=== PATIENT | female | born 1985 | race African-American/Black ===

== ENCOUNTER 2016-07-03 16:31 | Emergency (ER) | payer OTHER ==
[~2016-07-03] VITALS: Ht 172.7 cm; Wt 81.8 kg
[~2016-07-03 16:31] MED LIST: AMOXICILLIN 50500 MG; ANUSOL-HC SUPPO25 MG RC; BACTRIM DS 8001 TAB PO; CEPHALEXIN250 M1 PO; COLACE 100100 MG/CAP PO; FLINTSTONE VITAMIN; IBU800 M1 PO; MVI; NO HOME MEDICATIONS; NORCO 325 MG-51 TAB PO; PEPCID 20MG TAB20 MG PO; PHENERGAN W/CO120 ML PO; PRENATAL VITAMI1 TA5 PO; REGLAN 10MG10 MG/TAB PO; ZITHROMAX TRI-500 MG PO
[2016-07-03 16:33] VITALS: TEMP 98.8
[2016-07-03 17:39] VITALS: BP 122/84; PULSE 79
[2016-09-26] MEDS ORDERED: PREDNISONE20 MG PO (12:47)
[2016-09-26] MEDS ORDERED: SINGULAIR 110 MG/TAB PO (12:48)
== END 2016-07-03 17:38 | disposition home or self-care (01) ==
LOC: COL.ER 16:31
DX: G43.909 Migraine, unspecified, not intractable, without status migrainosus (principal); R60.0 Localized edema; G89.29 Other chronic pain; M79.662 Pain in left lower leg; M79.661 Pain in right lower leg; F17.210 Nicotine dependence, cigarettes, uncomplicated
CPT/HCPCS: J1885; J2550

== ENCOUNTER → 2016-07-21 | Outpatient (CLI) | payer OTHER ==
[~2016-07-21] MED LIST changes: +AMOXICILLIN 8751 TAB PO; +ASPIRIN E.C. 8181 MG PO; +AUGMENTIN 250 M1 TAB PO; +CLARITIN 1010 MG/TAB PO; +DRISDOL50000 IU PO; +K-DUR 10 MEQ T10 MEQ PO; +LASIX 40MG TABL40 MG PO; +LEVAQUIN 5500 MG/TA1 PO; +PERCOCET 325 MG1 TA2 PO; +PHENERGAN 25 TA25 MG; +PRAVACHOL 40MG40 MG PO; +PREDNISONE1 MG PO; +PREDNISONE20 MG PO; +SINGULAIR 110 MG/TAB PO; +VITAMIN D1000 IU PO; +ZESTRIL 5MG5 MG PO; +ZOFRAN 4MG T4 MG/TAB PO
[2016-07-21 09:58] LABS: BASO # 0.1 (0.0-0.2); BASO % 0.6 % (0.0-2.0); EOS # 1.3 (0.0-0.7); GRAN # 3.2 (1.4-6.5); GRAN % 38.7 % (42.2-75.2); HEMATOCRIT 39.5 % (37.0-47.0); HEMOGLOBIN 13.3 g/dl (12.5-16.0); LYMPH % 37.1 % (20.0-51.0); MEAN CELL VOLUME 93 fl (80.0-100.0); MEAN CORPUSCULAR HEMOGLOBIN 31 pg (27.0-31.0); MEAN CORPUSCULAR HGB CONC 34 g/dl (33.0-37.0); MONO # 0.6 (0.1-0.6); MONO % 7.5 % (1.7-9.3); PLATELET COUNT 302 K/mm3 (130-400); RED BLOOD COUNT 4.24 M/mm3 (4.10-5.30); REDCELL DISTRIBUTION WIDTH-CV 12.5 % (11.5-14.5); WHITE BLOOD COUNT 8.2 K/mm3 (4.8-10.8)
[2016-07-21 10:05] LABS: ADJUSTED CALCIUM 10.1 mg/dL (8.4-10.2); ALBUMIN 2.3 gm/dL (3.5-5.0); BILIRUBIN,TOTAL 0.5 mg/dL (0.0-1.0); CALCIUM 8.7 mg/dL (8.4-10.2); CREATININE, serum 0.77 mg/dL (0.52-1.25); POTASSIUM 3.6 mmol/L (3.4-5.0); TOTAL PROTEIN 6.2 gm/dL (6.4-8.2)
[2016-07-21 11:03] LABS: PH 5 (5-8); SQUAMOUS EPITHELIAL 0-2 /hpf; URINE APPEARANCE Hazy; URINE BACTERIA None Seen /hpf; URINE BILIRUBIN Negative (NEGATIVE); URINE BLOOD 1+ (NEGATIVE); URINE GLUCOSE Negative (NEGATIVE); URINE KETONE Trace (NEGATIVE); URINE UROBILINOGEN Negative (NEGATIVE)
[2016-07-21 11:05] LABS: URINE COLOR Yellow
== END ==
LOC: COL.LAB 09:08
PROVIDERS: Registered Nurse
DX: R60.1 Generalized edema (principal); M25.50 Pain in unspecified joint; G89.29 Other chronic pain

== ENCOUNTER 2016-08-07 16:48 | Emergency (ER) | payer MEDICAID ==
[~2016-08-07] VITALS: Ht 170.2 cm; Wt 95.5 kg
[~2016-08-07 16:48] MED LIST changes: -AMOXICILLIN 8751 TAB PO; -ASPIRIN E.C. 8181 MG PO; -AUGMENTIN 250 M1 TAB PO; -CLARITIN 1010 MG/TAB PO; -DRISDOL50000 IU PO; -K-DUR 10 MEQ T10 MEQ PO; -LASIX 40MG TABL40 MG PO; -LEVAQUIN 5500 MG/TA1 PO; -PERCOCET 325 MG1 TA2 PO; -PHENERGAN 25 TA25 MG; -PRAVACHOL 40MG40 MG PO; -PREDNISONE1 MG PO; -PREDNISONE20 MG PO; -SINGULAIR 110 MG/TAB PO; -VITAMIN D1000 IU PO; -ZESTRIL 5MG5 MG PO; -ZOFRAN 4MG T4 MG/TAB PO
[2016-08-07 16:54] VITALS: TEMP 100.4
[2016-08-07] MEDS ORDERED: VITAMIN D1000 IU PO (17:05)
[2016-08-07 18:33] LABS: MEAN CELL VOLUME 92 fl (80.0-100.0); MEAN CORPUSCULAR HGB CONC 34 g/dl (33.0-37.0); MEAN PLATELET VOLUME 10.8 fl (7.4-10.4); PLATELET COUNT 337 K/mm3 (130-400); RED BLOOD COUNT 3.71 M/mm3 (4.10-5.30); REDCELL DISTRIBUTION WIDTH-CV 12.5 % (11.5-14.5)
[2016-08-07 18:34] LABS: ADJUSTED CALCIUM 10.4 mg/dL (8.4-10.2); ALBUMIN 2.3 gm/dL (3.5-5.0); BILIRUBIN,TOTAL 0.5 mg/dL (0.0-1.0); C-REACTIVE PROTEIN 0.9 mg/dL (0.0-0.9); CREATININE, serum 1.39 mg/dL (0.52-1.25); POTASSIUM 4.4 mmol/L (3.4-5.0); TOTAL PROTEIN 6.3 gm/dL (6.4-8.2)
[2016-08-07 18:35] LABS: HYALINE CAST >12 /lpf; PH 5 (5-8); SQUAMOUS EPITHELIAL 0-2 /hpf; URINE APPEARANCE Hazy; URINE BACTERIA Rare /hpf; URINE BILIRUBIN Negative (NEGATIVE); URINE BLOOD 1+ (NEGATIVE); URINE COLOR Yellow; URINE GLUCOSE Negative (NEGATIVE); URINE KETONE Negative (NEGATIVE); URINE UROBILINOGEN Negative (NEGATIVE)
[2016-08-07 18:38] LABS: HEMATOCRIT 34.1 % (37.0-47.0); HEMOGLOBIN 11.5 g/dl (12.5-16.0); MEAN CORPUSCULAR HEMOGLOBIN 31 pg (27.0-31.0)
[2016-08-07 18:39] LABS: ADD PATHOLOGY DIFF REVIEW NO
[2016-08-07 19:12] LABS: BAND 7 % (0-10); EOSINOPHIL 22 % (0-4); NEUTROPHILS 45 % (42.0-75.2); PLATELET ESTIMATE NORMAL (NORMAL); TOTAL CELLS COUNTED 100
[2016-08-07] MEDS ORDERED: PERCOCET 325 MG1 TA2 PO (21:23)
[2016-08-07] MEDS ORDERED: AMOXICILLIN 8751 TAB PO (21:23)
[2016-08-07 21:40] VITALS: BP 129/72; PULSE 71
[2016-09-26] MEDS ORDERED: PREDNISONE20 MG PO (12:47)
[2016-09-26] MEDS ORDERED: SINGULAIR 110 MG/TAB PO (12:48)
== END 2016-08-07 21:53 | disposition home or self-care (01) ==
LOC: COL.ER 16:48
PROVIDERS: Emergency Medicine; Nurse Practitioner
DX: N04.9 Nephrotic syndrome with unspecified morphologic changes (principal); J32.9 Chronic sinusitis, unspecified; R51 Headache; F17.210 Nicotine dependence, cigarettes, uncomplicated
CPT/HCPCS: J1200; J1885; J2765; J7030

== ENCOUNTER 2016-08-09 09:10 | Emergency (ER) | payer OTHER, MEDICAID ==
[~2016-08-09] VITALS: Ht 170.2 cm; Wt 90.9 kg
[~2016-08-09 09:10] MED LIST changes: +AMOXICILLIN 8751 TAB PO; +PERCOCET 325 MG1 TA2 PO; +VITAMIN D1000 IU PO
[2016-08-09 09:14] VITALS: BP 135/86; TEMP 97.6
[2016-08-09] MEDS ORDERED: CLARITIN 1010 MG/TAB PO (09:45)
[2016-08-09 09:58] VITALS: PULSE 65
[2016-08-09] MEDS ORDERED: ZOFRAN 4MG T4 MG/TAB PO (10:30)
[2016-08-09 11:34] LABS: GRANULAR CAST >12 /lpf; HYALINE CAST >12 /lpf; PH 5 (5-8); URINE APPEARANCE Cloudy; URINE BACTERIA Occasional /hpf; URINE BILIRUBIN Negative (NEGATIVE); URINE BLOOD 2+ (NEGATIVE); URINE COLOR Amber; URINE GLUCOSE Negative (NEGATIVE); URINE KETONE Trace (NEGATIVE); URINE RBC 20-50 /hpf; URINE UROBILINOGEN Negative (NEGATIVE)
[2016-09-26] MEDS ORDERED: PREDNISONE20 MG PO (12:47)
[2016-09-26] MEDS ORDERED: SINGULAIR 110 MG/TAB PO (12:48)
== END 2016-08-09 11:26 | disposition home or self-care (01) ==
LOC: COL.ER 09:10
PROVIDERS: Nurse Practitioner
DX: H65.191 Other acute nonsuppurative otitis media, right ear (principal); H66.92 Otitis media, unspecified, left ear; F17.210 Nicotine dependence, cigarettes, uncomplicated; R11.10 Vomiting, unspecified
CPT/HCPCS: J1885

== ENCOUNTER 2016-08-11 14:18 | Inpatient (IN) | payer MEDICAID ==
[~2016-08-11] VITALS: Ht 170.2 cm; Wt 95.4 kg
[~2016-08-11 14:18] MED LIST changes: +CLARITIN 1010 MG/TAB PO; +ZOFRAN 4MG T4 MG/TAB PO
[2016-08-11 16:13] VITALS: BP 143/83; PULSE 71; TEMP 998.6
[2016-08-11] MEDS ORDERED: LASIX 40MG TABL40 MG PO (16:18)
[2016-08-11 17:02] LABS: ALBUMIN 2.2 gm/dL (3.5-5.0); CALCIUM 9.3 mg/dL (8.4-10.2); CREATININE, serum 1.15 mg/dL (0.52-1.25); POTASSIUM 4.5 mmol/L (3.4-5.0)
[2016-08-11 17:19] LABS: HIV 1/2 Antibodies Non-Reactive; HIV-1p24 Antigen Non-Reactive; PHOSPHOROUS 7.5 mg/dL (2.5-4.5)
[2016-08-11 20:03] VITALS: BP 118/65; PULSE 71; TEMP 99.2
[2016-08-12] VITALS (7 sets, daily range): BP systolic 113–145; BP diastolic 57–85; PULSE 68–83; TEMP 98.1–99.4
[2016-08-12 07:39] LABS: BASO # 0.1 (0.0-0.2); BASO % 0.8 % (0.0-2.0); EOS # 2.3 (0.0-0.7); EOS % 24.9 % (0-4.0); GRAN # 3.3 (1.4-6.5); GRAN % 36.7 % (42.2-75.2); LYMPH # 2.5 (1.2-3.4); LYMPH % 27.5 % (20.0-51.0); MEAN CELL VOLUME 92 fl (80.0-100.0); MEAN CORPUSCULAR HGB CONC 33 g/dl (33.0-37.0); MEAN PLATELET VOLUME 10.9 fl (7.4-10.4); MONO # 0.9 (0.1-0.6); MONO % 9.9 % (1.7-9.3); PLATELET COUNT 283 K/mm3 (130-400); RED BLOOD COUNT 3.03 M/mm3 (4.10-5.30); REDCELL DISTRIBUTION WIDTH-CV 12.7 % (11.5-14.5)
[2016-08-12 07:46] LABS: HEMATOCRIT 27.9 % (37.0-47.0); HEMOGLOBIN 9.3 g/dl (12.5-16.0); MEAN CORPUSCULAR HEMOGLOBIN 31 pg (27.0-31.0)
[2016-08-12 07:49] LABS: CALCIUM 8.7 mg/dL (8.4-10.2); CREATININE, serum 1.26 mg/dL (0.52-1.25); POTASSIUM 4.4 mmol/L (3.4-5.0)
[2016-08-12 18:15] LABS: URINE 24 HOUR CREATININE 1.3 gm/24 hr (0.8-1.8)
[2016-08-12 20:04] LABS: CREATININE URINE <5 mg/dL (())
[2016-08-12 20:35] LABS: HYALINE CAST >12 /lpf; PH 5 (5-8); URINE APPEARANCE Cloudy; URINE BACTERIA Rare /hpf; URINE BILIRUBIN Negative (NEGATIVE); URINE BLOOD 2+ (NEGATIVE); URINE COLOR Yellow; URINE GLUCOSE Negative (NEGATIVE); URINE KETONE Trace (NEGATIVE); URINE RBC 20-50 /hpf; URINE UROBILINOGEN Negative (NEGATIVE)
[2016-08-12 20:43] LABS: URINE WBC 0-2 /hpf
[2016-08-13 04:29] VITALS: BP 105/55; PULSE 81; TEMP 97.7
[2016-08-13 07:11] LABS: MEAN CELL VOLUME 91 fl (80.0-100.0); MEAN CORPUSCULAR HGB CONC 34 g/dl (33.0-37.0); PLATELET COUNT 246 K/mm3 (130-400); RED BLOOD COUNT 2.89 M/mm3 (4.10-5.30); REDCELL DISTRIBUTION WIDTH-CV 12.5 % (11.5-14.5); WHITE BLOOD COUNT 9.7 K/mm3 (4.8-10.8)
[2016-08-13 07:17] LABS: HEMATOCRIT 26.3 % (37.0-47.0); HEMOGLOBIN 8.9 g/dl (12.5-16.0); MEAN CORPUSCULAR HEMOGLOBIN 31 pg (27.0-31.0)
[2016-08-13 07:18] LABS: ADD PATHOLOGY DIFF REVIEW NO
[2016-08-13 07:26] LABS: ALBUMIN 1.9 gm/dL (3.5-5.0); CALCIUM 8.9 mg/dL (8.4-10.2); CREATININE, serum 1.68 mg/dL (0.52-1.25); PHOSPHOROUS 7.1 mg/dL (2.5-4.5); POTASSIUM 4.2 mmol/L (3.4-5.0)
[2016-08-13 07:37] VITALS: BP 101/64; PULSE 74; TEMP 98.4
[2016-08-13 07:37] LABS: BAND 1 % (0-10); EOSINOPHIL 19 % (0-4); NEUTROPHILS 43 % (42.0-75.2); TOTAL CELLS COUNTED 100
[2016-08-13 11:39] VITALS: BP 131/83; PULSE 69; TEMP 97.9
[2016-08-13 15:26] VITALS: BP 126/82; PULSE 66; TEMP 98.9
[2016-08-13 20:31] VITALS: BP 124/75; PULSE 80; TEMP 98.7
[2016-08-14] VITALS (13 sets, daily range): BP systolic 113–149; BP diastolic 66–101; PULSE 9–78; TEMP 97.7–99.3
[2016-08-14 07:07] LABS: MEAN CELL VOLUME 91 fl (80.0-100.0); MEAN CORPUSCULAR HGB CONC 34 g/dl (33.0-37.0); MEAN PLATELET VOLUME 11.2 fl (7.4-10.4); PLATELET COUNT 249 K/mm3 (130-400); RED BLOOD COUNT 3.03 M/mm3 (4.10-5.30); REDCELL DISTRIBUTION WIDTH-CV 12.5 % (11.5-14.5); WHITE BLOOD COUNT 9.6 K/mm3 (4.8-10.8)
[2016-08-14 07:12] LABS: INR 1.3 (0.8-3.0)
[2016-08-14 07:15] LABS: PARTIAL THROMBOPLASTIN TIME 43.1 SECONDS (26.0-37.0)
[2016-08-14 07:23] LABS: HEMATOCRIT 27.5 % (37.0-47.0); HEMOGLOBIN 9.3 g/dl (12.5-16.0); MEAN CORPUSCULAR HEMOGLOBIN 31 pg (27.0-31.0)
[2016-08-14 07:24] LABS: ADD PATHOLOGY DIFF REVIEW NO
[2016-08-14 07:25] LABS: ALBUMIN 1.9 gm/dL (3.5-5.0); CALCIUM 9.2 mg/dL (8.4-10.2); CREATININE, serum 1.59 mg/dL (0.52-1.25); PHOSPHOROUS 7.7 mg/dL (2.5-4.5); POTASSIUM 4.1 mmol/L (3.4-5.0)
[2016-08-14 08:37] LABS: BAND 1 % (0-10); BASOPHIL 1 % (0-2); EOSINOPHIL 29 % (0-4); NEUTROPHILS 36 % (42.0-75.2); PLATELET ESTIMATE NORMAL (NORMAL); TOTAL CELLS COUNTED 100
[2016-08-15 00:48] LABS: PROTEIN TIMED URINE 3944.9 mg/24hrs (0.0-299.0)
[2016-08-15 03:41] VITALS: BP 117/63; PULSE 63; TEMP 98.9
[2016-08-15 03:43] LABS: ANA SCREEN with REFLEX Negative (Negative)
[2016-08-15 07:34] LABS: MEAN CELL VOLUME 91 fl (80.0-100.0); MEAN CORPUSCULAR HGB CONC 34 g/dl (33.0-37.0); MEAN PLATELET VOLUME 11.6 fl (7.4-10.4); PLATELET COUNT 252 K/mm3 (130-400); RED BLOOD COUNT 2.95 M/mm3 (4.10-5.30); REDCELL DISTRIBUTION WIDTH-CV 12.4 % (11.5-14.5); WHITE BLOOD COUNT 10.5 K/mm3 (4.8-10.8)
[2016-08-15 07:38] LABS: ADD PATHOLOGY DIFF REVIEW NO; HEMATOCRIT 26.8 % (37.0-47.0); HEMOGLOBIN 9.1 g/dl (12.5-16.0); MEAN CORPUSCULAR HEMOGLOBIN 31 pg (27.0-31.0)
[2016-08-15 07:45] LABS: CALCIUM 9.4 mg/dL (8.4-10.2); CREATININE, serum 1.77 mg/dL (0.52-1.25); POTASSIUM 4.2 mmol/L (3.4-5.0)
[2016-08-15 08:15] VITALS: BP 134/82; PULSE 70; TEMP 98.9
[2016-08-15 09:52] LABS: BASOPHIL 1 % (0-2); EOSINOPHIL 23 % (0-4); NEUTROPHILS 42 % (42.0-75.2); PLATELET ESTIMATE NORMAL (NORMAL); TOTAL CELLS COUNTED 100
[2016-08-15] MEDS ORDERED: LEVAQUIN 5500 MG/TA1 PO (10:12)
[2016-08-25 19:58] LABS: PROT-CREAT RATIO, URINE 0.9 (())
[2016-09-26] MEDS ORDERED: PREDNISONE20 MG PO (12:47)
[2016-09-26] MEDS ORDERED: SINGULAIR 110 MG/TAB PO (12:48)
== END 2016-08-15 11:04 | disposition home or self-care (01) | DRG 700 ==
LOC: COL.RAD 14:18 → MEDICAL 15:45
PROVIDERS: Internal Medicine; Internal Medicine Nephrology
PROC: 0TB13ZX Excision of Left Kidney, Percutaneous Approach, Diagnostic (ICD-10-PCS; principal; 2016-08-14)
DX: N04.9 Nephrotic syndrome with unspecified morphologic changes (principal); J01.90 Acute sinusitis, unspecified; I10 Essential (primary) hypertension; E87.70 Fluid overload, unspecified; F17.210 Nicotine dependence, cigarettes, uncomplicated
CPT/HCPCS: J1650; J1956; J2250; J2405; J3010

== ENCOUNTER 2016-08-18 07:58 | Emergency (ER) | payer MEDICAID ==
[~2016-08-18] VITALS: Ht 172.7 cm; Wt 86.4 kg
[~2016-08-18 07:58] MED LIST changes: +LASIX 40MG TABL40 MG PO; +LEVAQUIN 5500 MG/TA1 PO
[2016-08-18 08:00] VITALS: TEMP 98.5
[2016-08-18] MEDS ORDERED: PREDNISONE1 MG PO (08:18)
[2016-08-18] MEDS ORDERED: AUGMENTIN 250 M1 TAB PO (08:19)
[2016-08-18] MEDS ORDERED: PREDNISONE20 MG PO (08:19)
[2016-08-18 09:04] LABS: BASO % 0.2 % (0.0-2.0); EOS % 0.1 % (0-4.0); GRAN # 10.7 (1.4-6.5); GRAN % 81.7 % (42.2-75.2); LYMPH # 1.8 (1.2-3.4); LYMPH % 13.7 % (20.0-51.0); MEAN CELL VOLUME 89 fl (80.0-100.0); MEAN CORPUSCULAR HGB CONC 34 g/dl (33.0-37.0); MEAN PLATELET VOLUME 11.1 fl (7.4-10.4); MONO # 0.5 (0.1-0.6); MONO % 3.8 % (1.7-9.3); PLATELET COUNT 242 K/mm3 (130-400); RED BLOOD COUNT 3.27 M/mm3 (4.10-5.30); REDCELL DISTRIBUTION WIDTH-CV 12.3 % (11.5-14.5)
[2016-08-18 09:13] LABS: HEMATOCRIT 29.1 % (37.0-47.0); HEMOGLOBIN 9.9 g/dl (12.5-16.0); MEAN CORPUSCULAR HEMOGLOBIN 30 pg (27.0-31.0)
[2016-08-18 09:21] LABS: ADJUSTED CALCIUM 10.9 mg/dL (8.4-10.2); ALBUMIN 2.3 gm/dL (3.5-5.0); BILIRUBIN,TOTAL 0.4 mg/dL (0.0-1.0); CALCIUM 9.5 mg/dL (8.4-10.2); CREATININE, serum 3.17 mg/dL (0.52-1.25); POTASSIUM 4.4 mmol/L (3.4-5.0); TOTAL PROTEIN 6.2 gm/dL (6.4-8.2)
[2016-08-18 10:15] VITALS: BP 124/91; PULSE 85
[2016-09-26] MEDS ORDERED: PREDNISONE20 MG PO (12:47)
[2016-09-26] MEDS ORDERED: SINGULAIR 110 MG/TAB PO (12:48)
== END 2016-08-18 10:11 | disposition home or self-care (01) ==
LOC: COL.ER 07:58
PROVIDERS: Nurse Practitioner
DX: N04.9 Nephrotic syndrome with unspecified morphologic changes (principal); F17.210 Nicotine dependence, cigarettes, uncomplicated

== ENCOUNTER → 2016-08-21 | Outpatient (CLI) | payer OTHER ==
[~2016-08-21] MED LIST changes: +ASPIRIN E.C. 8181 MG PO; +AUGMENTIN 250 M1 TAB PO; +DRISDOL50000 IU PO; +K-DUR 10 MEQ T10 MEQ PO; +LASIX 20MG TABL20 MG PO; +PHENERGAN 25 TA25 MG; +PRAVACHOL 40MG40 MG PO; +PREDNISONE1 MG PO; +PREDNISONE20 MG PO; +SINGULAIR 110 MG/TAB PO; +ZESTRIL 5MG5 MG PO
[2016-08-21 14:58] LABS: CALCIUM 7.3 mg/dL (8.4-10.2); CREATININE, serum 2.09 mg/dL (0.52-1.25); POTASSIUM 3.5 mmol/L (3.4-5.0)
== END ==
LOC: COL.LAB 14:13
PROVIDERS: Internal Medicine
DX: N04.8 Nephrotic syndrome with other morphologic changes (principal)

== ENCOUNTER 2016-08-24 13:04 | Emergency (ER) | payer OTHER ==
[~2016-08-24] VITALS: Ht 170.2 cm; Wt 100.0 kg
[~2016-08-24 13:04] MED LIST changes: -ASPIRIN E.C. 8181 MG PO; -DRISDOL50000 IU PO; -K-DUR 10 MEQ T10 MEQ PO; -LASIX 20MG TABL20 MG PO; -PHENERGAN 25 TA25 MG; -PRAVACHOL 40MG40 MG PO; -SINGULAIR 110 MG/TAB PO; -ZESTRIL 5MG5 MG PO
[2016-08-24 13:05] VITALS: TEMP 98.3
[2016-08-24] MEDS ORDERED: DRISDOL50000 IU PO (13:19)
[2016-08-24] MEDS ORDERED: ZESTRIL 5MG5 MG PO (13:20)
[2016-08-24] MEDS ORDERED: PRAVACHOL 40MG40 MG PO (13:20)
[2016-08-24] MEDS ORDERED: K-DUR 10 MEQ T10 MEQ PO (13:21)
[2016-08-24] MEDS ORDERED: ASPIRIN E.C. 8181 MG PO (13:22)
[2016-08-24 13:54] LABS: BASO % 0.2 % (0.0-2.0); EOS # 1.6 (0.0-0.7); EOS % 8.5 % (0-4.0); GRAN # 9.3 (1.4-6.5); GRAN % 48.2 % (42.2-75.2); LYMPH # 6.7 (1.2-3.4); LYMPH % 34.4 % (20.0-51.0); MEAN CELL VOLUME 93 fl (80.0-100.0); MEAN CORPUSCULAR HGB CONC 33 g/dl (33.0-37.0); MEAN PLATELET VOLUME 10.1 fl (7.4-10.4); MONO # 1.6 (0.1-0.6); MONO % 8.2 % (1.7-9.3); PLATELET COUNT 452 K/mm3 (130-400); RED BLOOD COUNT 3.18 M/mm3 (4.10-5.30); REDCELL DISTRIBUTION WIDTH-CV 13.5 % (11.5-14.5); WHITE BLOOD COUNT 19.3 K/mm3 (4.8-10.8)
[2016-08-24 13:56] LABS: HEMATOCRIT 29.4 % (37.0-47.0); HEMOGLOBIN 9.8 g/dl (12.5-16.0); MEAN CORPUSCULAR HEMOGLOBIN 31 pg (27.0-31.0)
[2016-08-24 13:59] LABS: PH 5 (5-8); SQUAMOUS EPITHELIAL 0-2 /hpf; URINE APPEARANCE Clear; URINE BACTERIA Rare /hpf; URINE BILIRUBIN Negative (NEGATIVE); URINE BLOOD 2+ (NEGATIVE); URINE COLOR Yellow; URINE GLUCOSE Negative (NEGATIVE); URINE KETONE Negative (NEGATIVE); URINE UROBILINOGEN Negative (NEGATIVE); URINE WBC 0-2 /hpf
[2016-08-24 14:04] LABS: PROTHROMBIN TIME 10.9 SECONDS (9.7-12.8)
[2016-08-24 14:05] LABS: ADJUSTED CALCIUM 8.5 mg/dL (8.4-10.2); ALANINE AMINOTRANSFERASE 33 U/L (9-52); ALBUMIN 2.1 gm/dL (3.5-5.0); ALKALINE PHOSPHATASE 108 U/L (50-136); ANION GAP 6 mmol/L (7-16); BILIRUBIN,TOTAL 0.4 mg/dL (0.0-1.0); BLOOD UREA NITROGEN 22 mg/dL (7-17); CARBON DIOXIDE 25 mmol/L (22-30); CHLORIDE 107 mmol/L (98-107); GLUCOSE 90 mg/dL (74-106); POTASSIUM 3.1 mmol/L (3.4-5.0); SODIUM 138 mmol/L (137-145); TOTAL PROTEIN 5.7 gm/dL (6.4-8.2)
[2016-08-24 14:07] LABS: PARTIAL THROMBOPLASTIN TIME 29.7 SECONDS (26.0-37.0)
[2016-08-24 14:25] LABS: TROPONIN-I < 0.012 ng/mL (0.000-0.034)
[2016-08-24 15:45] VITALS: BP 138/94; PULSE 73
[2016-09-26] MEDS ORDERED: PREDNISONE20 MG PO (12:47)
[2016-09-26] MEDS ORDERED: SINGULAIR 110 MG/TAB PO (12:48)
== END 2016-08-24 15:48 | disposition left against medical advice (07) ==
LOC: COL.ER 13:04
PROVIDERS: Emergency Medicine
DX: I48.0 Paroxysmal atrial fibrillation (principal); Z53.21 Procedure and treatment not carried out due to patient leaving prior to being seen by health care provider; E87.6 Hypokalemia; N19 Unspecified kidney failure; I10 Essential (primary) hypertension; F17.210 Nicotine dependence, cigarettes, uncomplicated; R07.9 Chest pain, unspecified
CPT/HCPCS: J1650

== ENCOUNTER → 2016-09-04 | Outpatient (CLI) | payer MEDICAID ==
[~2016-09-04] MED LIST changes: +ASPIRIN E.C. 8181 MG PO; +DRISDOL50000 IU PO; +K-DUR 10 MEQ T10 MEQ PO; +PHENERGAN 25 TA25 MG; +PRAVACHOL 40MG40 MG PO; +SINGULAIR 110 MG/TAB PO; +ZESTRIL 5MG5 MG PO
[2016-09-04 12:13] LABS: BASO % 0.1 % (0.0-2.0); GRAN # 12.3 (1.4-6.5); GRAN % 79.1 % (42.2-75.2); HEMATOCRIT 38.1 % (37.0-47.0); HEMOGLOBIN 12.5 g/dl (12.5-16.0); LYMPH # 2.5 (1.2-3.4); LYMPH % 16.2 % (20.0-51.0); MEAN CELL VOLUME 98 fl (80.0-100.0); MEAN CORPUSCULAR HEMOGLOBIN 32 pg (27.0-31.0); MEAN CORPUSCULAR HGB CONC 33 g/dl (33.0-37.0); MEAN PLATELET VOLUME 10.5 fl (7.4-10.4); MONO # 0.6 (0.1-0.6); PLATELET COUNT 406 K/mm3 (130-400); REDCELL DISTRIBUTION WIDTH-CV 19.7 % (11.5-14.5); WHITE BLOOD COUNT 15.5 K/mm3 (4.8-10.8)
[2016-09-04 12:21] LABS: CALCIUM 8.9 mg/dL (8.4-10.2); PHOSPHOROUS 4.6 mg/dL (2.5-4.5); POTASSIUM 3.2 mmol/L (3.4-5.0)
[2016-09-04 22:23] LABS: CREATININE URINE 17 mg/dL (())
== END ==
LOC: COL.LAB 09:21
PROVIDERS: Internal Medicine
DX: N04.8 Nephrotic syndrome with other morphologic changes (principal)

== ENCOUNTER → 2016-09-19 | Outpatient (CLI) | payer OTHER ==
[~2016-09-19] MED LIST changes: +LASIX 20MG TABL20 MG PO
== END ==
LOC: COL.VAS 11:00
DX: E78.4 Other hyperlipidemia (principal); R00.2 Palpitations

== ENCOUNTER → 2016-09-21 | Outpatient (CLI) | payer OTHER ==
[2016-09-21 09:00] LABS: CALCIUM 9.6 mg/dL (8.4-10.2); CREATININE, serum 0.91 mg/dL (0.52-1.25); POTASSIUM 4.3 mmol/L (3.4-5.0)
[2016-09-21 09:15] LABS: PH 5 (5-8); SQUAMOUS EPITHELIAL 0-2 /hpf; URINE APPEARANCE Clear; URINE BACTERIA None Seen /hpf; URINE BILIRUBIN Negative (NEGATIVE); URINE BLOOD 2+ (NEGATIVE); URINE COLOR Yellow; URINE GLUCOSE Negative (NEGATIVE); URINE KETONE Negative (NEGATIVE); URINE UROBILINOGEN Negative (NEGATIVE); URINE WBC 0-2 /hpf
[2016-09-22 17:26] LABS: CREATININE OTHER SOURCE 73 mg/dL (())
== END ==
LOC: COL.LAB 08:20
PROVIDERS: Internal Medicine
DX: N04.8 Nephrotic syndrome with other morphologic changes (principal)

== ENCOUNTER 2016-09-29 08:24 | Outpatient (CLI) | payer MEDICAID ==
[~2016-09-29] VITALS: Ht 170.2 cm; Wt 87.8 kg
[~2016-09-29 08:24] MED LIST changes: -LASIX 20MG TABL20 MG PO; -PHENERGAN 25 TA25 MG
[2016-09-29] MEDS ORDERED: PHENERGAN 25 TA25 MG (08:48)
[2016-09-29 08:51] VITALS: BP 112/72; PULSE 75
[2016-09-29 09:35] VITALS: BP 138/60; PULSE 64
[2016-09-29 09:40] VITALS: BP 86/52; PULSE 56
[2016-09-29 09:55] VITALS: BP 96/58; PULSE 76
[2016-09-29 10:10] VITALS: BP 100/56; PULSE 57
[2016-10-02 11:14] LABS: CSF,IGG 1.5 mg/dL (<=8.1)
[2016-10-02 11:30] LABS: ALBUMIN CSF 7.1 mg/dL (<=27.0); CSF IGG/ALBUMIN 0.21 (<=0.21); CSF SYNTHESIS RATE 0.88 mg/24 h (<=12); CSF-IGG INDEX 0.68 (<=0.85); IGG/ALBUMIN SERUM 0.31 (<=0.40)
== END 2016-09-29 12:06 | disposition home or self-care (01) ==
LOC: COL.RAD 08:24
PROVIDERS: Psychiatry & Neurology Neurology
DX: H47.10 Unspecified papilledema (principal)

== ENCOUNTER → 2016-10-31 | Outpatient (CLI) | payer MEDICAID ==
[~2016-10-31] MED LIST changes: +LASIX 20MG TABL20 MG PO; +PHENERGAN 25 TA25 MG
[2016-10-31 12:16] LABS: BASO # 0.1 (0.0-0.2); BASO % 0.9 % (0.0-2.0); EOS # 0.8 (0.0-0.7); EOS % 9.4 % (0-4.0); GRAN # 2.8 (1.4-6.5); GRAN % 32.7 % (42.2-75.2); HEMATOCRIT 41.7 % (37.0-47.0); HEMOGLOBIN 14.1 g/dl (12.5-16.0); LYMPH # 4.4 (1.2-3.4); LYMPH % 51.2 % (20.0-51.0); MEAN CELL VOLUME 97 fl (80.0-100.0); MEAN CORPUSCULAR HEMOGLOBIN 33 pg (27.0-31.0); MEAN CORPUSCULAR HGB CONC 34 g/dl (33.0-37.0); MEAN PLATELET VOLUME 10.4 fl (7.4-10.4); MONO # 0.5 (0.1-0.6); MONO % 5.7 % (1.7-9.3); PLATELET COUNT 268 K/mm3 (130-400); RED BLOOD COUNT 4.29 M/mm3 (4.10-5.30); REDCELL DISTRIBUTION WIDTH-CV 13.9 % (11.5-14.5); WHITE BLOOD COUNT 8.6 K/mm3 (4.8-10.8)
[2016-10-31 12:54] LABS: CREATININE, serum 0.75 mg/dL (0.52-1.25)
[2016-11-01 14:39] LABS: CREATININE OTHER SOURCE 201 mg/dL (())
== END ==
LOC: COL.LAB 11:15
PROVIDERS: Internal Medicine
DX: N04.9 Nephrotic syndrome with unspecified morphologic changes (principal)

== ENCOUNTER 2016-12-01 11:02 | Emergency (ER) | payer MEDICAID ==
[~2016-12-01] VITALS: Ht 172.7 cm; Wt 83.2 kg
[~2016-12-01 11:02] MED LIST changes: -LASIX 20MG TABL20 MG PO
[2016-12-01 11:06] VITALS: BP 119/71; PULSE 86; TEMP 98.5
== END 2016-12-01 12:14 | disposition home or self-care (01) ==
LOC: COL.ER 11:02
DX: G43.909 Migraine, unspecified, not intractable, without status migrainosus (principal); I10 Essential (primary) hypertension; F17.210 Nicotine dependence, cigarettes, uncomplicated; F12.99 Cannabis use, unspecified with unspecified cannabis-induced disorder; Z98.890 Other specified postprocedural states
CPT/HCPCS: J1885; J2765

== ENCOUNTER → 2017-01-03 | Outpatient (CLI) | payer MEDICAID ==
[~2017-01-03] MED LIST changes: +LASIX 20MG TABL20 MG PO
[2017-01-03 15:41] LABS: BASO % 0.6 % (0.0-2.0); EOS # 0.9 (0.0-0.7); EOS % 11.9 % (0-4.0); GRAN # 2.8 (1.4-6.5); GRAN % 38.7 % (42.2-75.2); LYMPH % 41.8 % (20.0-51.0); MEAN CELL VOLUME 91 fl (80.0-100.0); MEAN CORPUSCULAR HGB CONC 34 g/dl (33.0-37.0); MEAN PLATELET VOLUME 11.1 fl (7.4-10.4); MONO # 0.5 (0.1-0.6); MONO % 6.9 % (1.7-9.3); PLATELET COUNT 245 K/mm3 (130-400); RED BLOOD COUNT 3.45 M/mm3 (4.10-5.30); WHITE BLOOD COUNT 7.2 K/mm3 (4.8-10.8)
[2017-01-03 15:43] LABS: HEMATOCRIT 31.5 % (37.0-47.0); HEMOGLOBIN 10.6 g/dl (12.5-16.0); MEAN CORPUSCULAR HEMOGLOBIN 31 pg (27.0-31.0)
[2017-01-03 15:49] LABS: CALCIUM 9.6 mg/dL (8.4-10.2); CREATININE, serum 0.54 mg/dL (0.52-1.25); POTASSIUM 3.5 mmol/L (3.4-5.0)
== END ==
LOC: COL.LAB 15:04
PROVIDERS: Internal Medicine
DX: N04.9 Nephrotic syndrome with unspecified morphologic changes (principal)

== ENCOUNTER → 2017-01-04 | Outpatient (CLI) | payer MEDICAID ==
[2017-01-04 23:13] LABS: ALBUMIN/CREATININE RATIO URINE 7.1 mg/g (0.0-29.0)
== END ==
LOC: COL.LAB 11:09
PROVIDERS: Internal Medicine
DX: N04.9 Nephrotic syndrome with unspecified morphologic changes (principal)

== ENCOUNTER 2017-02-08 08:30 | Outpatient (RCR) | payer MEDICAID ==
[~2017-02-08 08:30] MED LIST changes: -LASIX 20MG TABL20 MG PO
[2017-02-20] MEDS ORDERED: COLACE 100100 MG/CAP PO (10:21)
[2017-02-20] MEDS ORDERED: PREDNISONE20 MG PO (10:22)
[2017-02-20] MEDS ORDERED: LASIX 20MG TABL20 MG PO (10:23)
[2017-02-20] MEDS ORDERED: NORCO 325 MG-51 TAB PO (10:23)
== END 2017-05-08 11:28 | disposition home or self-care (01) ==
LOC: MKS.ESL.PT 08:30
DX: R26.9 Unspecified abnormalities of gait and mobility (principal); M62.81 Muscle weakness (generalized); M25.561 Pain in right knee; M25.562 Pain in left knee

== ENCOUNTER 2017-02-14 14:12 | Inpatient (IN) | payer MEDICAID ==
[~2017-02-14] VITALS: Ht 170.2 cm; Wt 79.5 kg
[2017-02-14 15:38] LABS: ADJUSTED CALCIUM 9.8 mg/dL (8.4-10.2); ALANINE AMINOTRANSFERASE 23 U/L (9-52); ALBUMIN 2.1 gm/dL (3.5-5.0); ALKALINE PHOSPHATASE 80 U/L (50-136); ANION GAP 1 mmol/L (7-16); BASO # 0.1 (0.0-0.2); BASO % 0.6 % (0.0-2.0); BILIRUBIN,TOTAL 0.3 mg/dL (0.0-1.0); BLOOD UREA NITROGEN 9 mg/dL (7-17); CALCIUM 8.3 mg/dL (8.4-10.2); CARBON DIOXIDE 29 mmol/L (22-30); CHLORIDE 106 mmol/L (98-107); EOS # 0.6 (0.0-0.7); EOS % 7.9 % (0-4.0); GLUCOSE 77 mg/dL (74-106); GRAN % 49.5 % (42.2-75.2); LIPASE 45 U/L (23-300); LYMPH % 37.4 % (20.0-51.0); MEAN CELL VOLUME 91 fl (80.0-100.0); MEAN CORPUSCULAR HGB CONC 33 g/dl (33.0-37.0); MEAN PLATELET VOLUME 11.3 fl (7.4-10.4); MONO # 0.3 (0.1-0.6); MONO % 4.3 % (1.7-9.3); PLATELET COUNT 247 K/mm3 (130-400); RED BLOOD COUNT 3.79 M/mm3 (4.10-5.30); REDCELL DISTRIBUTION WIDTH-CV 12.6 % (11.5-14.5); SODIUM 136 mmol/L (137-145); TOTAL PROTEIN 5.3 gm/dL (6.4-8.2)
[2017-02-14 15:39] LABS: C-REACTIVE PROTEIN < 0.5 mg/dL (0.0-0.9)
[2017-02-14 15:41] LABS: HEMATOCRIT 34.4 % (37.0-47.0); HEMOGLOBIN 11.2 g/dl (12.5-16.0); MEAN CORPUSCULAR HEMOGLOBIN 30 pg (27.0-31.0)
[2017-02-14 18:06] LABS: PH 5 (5-8); URINE APPEARANCE Hazy; URINE BACTERIA None Seen /hpf; URINE BILIRUBIN Negative (NEGATIVE); URINE BLOOD Negative (NEGATIVE); URINE COLOR Yellow; URINE GLUCOSE Negative (NEGATIVE); URINE KETONE Negative (NEGATIVE); URINE UROBILINOGEN Negative (NEGATIVE)
[2017-02-14 18:36] VITALS: PULSE 71; TEMP 98.6
[2017-02-14 23:16] VITALS: BP 116/55; PULSE 62; TEMP 98.4
[2017-02-15] VITALS (12 sets, daily range): BP systolic 91–130; BP diastolic 60–91; PULSE 53–73; TEMP 97.3–98.6
[2017-02-15 06:36] LABS: BASO % 0.8 % (0.0-2.0); EOS # 0.5 (0.0-0.7); EOS % 9.4 % (0-4.0); GRAN # 1.5 (1.4-6.5); LYMPH # 2.6 (1.2-3.4); LYMPH % 52.5 % (20.0-51.0); MEAN CELL VOLUME 91 fl (80.0-100.0); MEAN CORPUSCULAR HGB CONC 33 g/dl (33.0-37.0); MEAN PLATELET VOLUME 11.6 fl (7.4-10.4); MONO # 0.3 (0.1-0.6); MONO % 5.7 % (1.7-9.3); PLATELET COUNT 233 K/mm3 (130-400); REDCELL DISTRIBUTION WIDTH-CV 12.6 % (11.5-14.5); WHITE BLOOD COUNT 4.9 K/mm3 (4.8-10.8)
[2017-02-15 06:48] LABS: CALCIUM 7.6 mg/dL (8.4-10.2); CREATININE, serum 0.56 mg/dL (0.52-1.25); POTASSIUM 3.7 mmol/L (3.4-5.0)
[2017-02-15 06:54] LABS: MEAN CORPUSCULAR HEMOGLOBIN 30 pg (27.0-31.0)
[2017-02-16 01:54] VITALS: BP 96/57; PULSE 63; TEMP 98.2
[2017-02-16 05:37] VITALS: BP 93/56; PULSE 62; TEMP 98.4
[2017-02-16 06:41] LABS: HEMATOCRIT 35.3 % (37.0-47.0); HEMOGLOBIN 11.6 g/dl (12.5-16.0)
[2017-02-16 07:03] LABS: CALCIUM 7.8 mg/dL (8.4-10.2); CREATININE, serum 0.76 mg/dL (0.52-1.25); MAGNESIUM 1.6 mg/dL (1.6-2.3); PHOSPHOROUS 4.4 mg/dL (2.5-4.5); POTASSIUM 4.9 mmol/L (3.4-5.0)
[2017-02-16 08:24] VITALS: BP 101/57; PULSE 61; TEMP 98
[2017-02-17 02:35] VITALS: BP 91/43; PULSE 73; TEMP 98.9
[2017-02-17 06:50] VITALS: BP 102/50; PULSE 70; TEMP 98.3
[2017-02-17 09:26] VITALS: BP 105/60; PULSE 69; TEMP 99.4
[2017-02-17 11:16] LABS: BASO % 0.3 % (0.0-2.0); EOS # 0.2 (0.0-0.7); GRAN # 7.6 (1.4-6.5); GRAN % 68.9 % (42.2-75.2); LYMPH # 2.5 (1.2-3.4); LYMPH % 22.4 % (20.0-51.0); MEAN CELL VOLUME 92 fl (80.0-100.0); MEAN CORPUSCULAR HGB CONC 32 g/dl (33.0-37.0); MEAN PLATELET VOLUME 10.3 fl (7.4-10.4); MONO # 0.7 (0.1-0.6); PLATELET COUNT 275 K/mm3 (130-400); REDCELL DISTRIBUTION WIDTH-CV 13.2 % (11.5-14.5); WHITE BLOOD COUNT 11.1 K/mm3 (4.8-10.8)
[2017-02-17 11:17] LABS: HEMATOCRIT 32.3 % (37.0-47.0); HEMOGLOBIN 10.4 g/dl (12.5-16.0); MEAN CORPUSCULAR HEMOGLOBIN 30 pg (27.0-31.0)
[2017-02-17 11:26] LABS: ALBUMIN 2.1 gm/dL (3.5-5.0); CALCIUM 7.7 mg/dL (8.4-10.2); CREATININE, serum 0.74 mg/dL (0.52-1.25); PHOSPHOROUS 3.4 mg/dL (2.5-4.5); POTASSIUM 3.7 mmol/L (3.4-5.0)
[2017-02-17 13:17] VITALS: BP 109/71; PULSE 73; TEMP 98.1
[2017-02-17 16:33] VITALS: BP 114/66; PULSE 79; TEMP 99.1
[2017-02-17 21:49] VITALS: BP 11/66; PULSE 76; TEMP 98.6
[2017-02-18 06:19] VITALS: BP 118/72; PULSE 68; TEMP 99.1
[2017-02-18 07:16] LABS: BASO % 0.4 % (0.0-2.0); EOS # 0.6 (0.0-0.7); EOS % 7.8 % (0-4.0); GRAN # 4.1 (1.4-6.5); GRAN % 56.9 % (42.2-75.2); LYMPH % 27.1 % (20.0-51.0); MEAN CELL VOLUME 91 fl (80.0-100.0); MEAN CORPUSCULAR HGB CONC 33 g/dl (33.0-37.0); MONO # 0.5 (0.1-0.6); MONO % 7.4 % (1.7-9.3); PLATELET COUNT 246 K/mm3 (130-400); REDCELL DISTRIBUTION WIDTH-CV 12.9 % (11.5-14.5); WHITE BLOOD COUNT 7.3 K/mm3 (4.8-10.8)
[2017-02-18 07:17] LABS: HEMATOCRIT 26.4 % (37.0-47.0); HEMOGLOBIN 8.8 g/dl (12.5-16.0); MEAN CORPUSCULAR HEMOGLOBIN 30 pg (27.0-31.0)
[2017-02-18 07:26] LABS: ALBUMIN 1.7 gm/dL (3.5-5.0); CALCIUM 7.5 mg/dL (8.4-10.2); CREATININE, serum 0.64 mg/dL (0.52-1.25); PHOSPHOROUS 3.4 mg/dL (2.5-4.5); POTASSIUM 3.6 mmol/L (3.4-5.0)
[2017-02-18 10:26] VITALS: BP 126/80; PULSE 70; TEMP 98.5
[2017-02-18 13:41] VITALS: BP 122/76; PULSE 65; PULSE 97; TEMP 97.8
[2017-02-18 16:18] VITALS: BP 123/72; PULSE 77; TEMP 98.9
[2017-02-18 22:32] VITALS: BP 127/77; PULSE 86; TEMP 99.4
[2017-02-19 06:13] VITALS: BP 134/73; PULSE 77; TEMP 99
[2017-02-19 09:06] VITALS: BP 132/75; PULSE 61; TEMP 98.2
[2017-02-19 13:30] VITALS: BP 121/68; PULSE 72; TEMP 98.6
[2017-02-19 18:00] VITALS: BP 107/74; PULSE 78; TEMP 98.6
[2017-02-19 23:05] VITALS: BP 114/65; PULSE 69; TEMP 97.5
[2017-02-20 06:27] VITALS: BP 113/63; PULSE 60; TEMP 97.7
[2017-02-20 09:14] VITALS: BP 103/65; PULSE 68; TEMP 98.1
[2017-02-20] MEDS ORDERED: COLACE 100100 MG/CAP PO (10:21)
[2017-02-20] MEDS ORDERED: PREDNISONE20 MG PO (10:22)
[2017-02-20] MEDS ORDERED: NORCO 325 MG-51 TAB PO (10:23)
[2017-02-20] MEDS ORDERED: LASIX 20MG TABL20 MG PO (10:23)
== END 2017-02-20 12:03 | disposition home or self-care (01) | DRG 331 ==
LOC: COL.ER 14:12 → SURG 17:26
PROVIDERS: Internal Medicine; Nurse Practitioner; Surgery
PROC: 8E0W4CZ Robotic Assisted Procedure of Trunk Region, Percutaneous Endoscopic Approach (ICD-10-PCS; 2017-02-15)
PROC: 0DTF4ZZ Resection of Right Large Intestine, Percutaneous Endoscopic Approach (ICD-10-PCS; principal; 2017-02-15 11:00)
DX: K56.1 Intussusception (principal); N05.9 Unspecified nephritic syndrome with unspecified morphologic changes; N18.9 Chronic kidney disease, unspecified; I12.9 Hypertensive chronic kidney disease with stage 1 through stage 4 chronic kidney disease, or unspecified chronic kidney disease; F17.210 Nicotine dependence, cigarettes, uncomplicated; E87.70 Fluid overload, unspecified
CPT/HCPCS: A4315; A9284; C9113; G0378; J1100; J1170; J1200; J1644; J1885; J2250; J2405; J2550; J2704; J2765; J3010; J7030; J7120; J7512; Q9967

== ENCOUNTER → 2017-02-27 | Outpatient (CLI) | payer MEDICAID ==
[~2017-02-27] MED LIST changes: +LASIX 20MG TABL20 MG PO
[2017-02-27 12:50] LABS: MEAN CELL VOLUME 92 fl (80.0-100.0); MEAN CORPUSCULAR HGB CONC 33 g/dl (33.0-37.0); MEAN PLATELET VOLUME 10.4 fl (7.4-10.4); PLATELET COUNT 449 K/mm3 (130-400); RED BLOOD COUNT 3.24 M/mm3 (4.10-5.30); REDCELL DISTRIBUTION WIDTH-CV 14.2 % (11.5-14.5); WHITE BLOOD COUNT 17.2 K/mm3 (4.8-10.8)
[2017-02-27 12:53] LABS: HEMATOCRIT 29.7 % (37.0-47.0); HEMOGLOBIN 9.8 g/dl (12.5-16.0); MEAN CORPUSCULAR HEMOGLOBIN 30 pg (27.0-31.0)
[2017-02-27 12:56] LABS: PH 5 (5-8); SQUAMOUS EPITHELIAL 0-2 /hpf; URINE APPEARANCE Clear; URINE BACTERIA None Seen /hpf; URINE BILIRUBIN Negative (NEGATIVE); URINE BLOOD 2+ (NEGATIVE); URINE COLOR Yellow; URINE GLUCOSE Negative (NEGATIVE); URINE KETONE Negative (NEGATIVE); URINE RBC 20-50 /hpf; URINE UROBILINOGEN Negative (NEGATIVE)
[2017-02-27 12:58] LABS: ADJUSTED CALCIUM 8.8 mg/dL (8.4-10.2); ALBUMIN 2.1 gm/dL (3.5-5.0); BILIRUBIN,TOTAL 0.2 mg/dL (0.0-1.0); CALCIUM 7.3 mg/dL (8.4-10.2); CREATININE, serum 0.66 mg/dL (0.52-1.25); POTASSIUM 3.3 mmol/L (3.4-5.0); TOTAL PROTEIN 5.4 gm/dL (6.4-8.2)
== END ==
LOC: COL.LAB 12:03
PROVIDERS: Surgery
DX: N04.9 Nephrotic syndrome with unspecified morphologic changes (principal)

== ENCOUNTER → 2017-03-06 | Outpatient (CLI) | payer MEDICAID ==
[2017-03-06 13:19] LABS: BASO % 0.3 % (0.0-2.0); EOS # 0.2 (0.0-0.7); EOS % 1.5 % (0-4.0); GRAN # 8.2 (1.4-6.5); GRAN % 57.4 % (42.2-75.2); LYMPH # 4.8 (1.2-3.4); LYMPH % 33.5 % (20.0-51.0); MEAN CELL VOLUME 97 fl (80.0-100.0); MEAN CORPUSCULAR HGB CONC 32 g/dl (33.0-37.0); MEAN PLATELET VOLUME 10.2 fl (7.4-10.4); MONO # 0.9 (0.1-0.6); MONO % 6.5 % (1.7-9.3); PLATELET COUNT 369 K/mm3 (130-400); RED BLOOD COUNT 3.66 M/mm3 (4.10-5.30); REDCELL DISTRIBUTION WIDTH-CV 17.5 % (11.5-14.5); WHITE BLOOD COUNT 14.2 K/mm3 (4.8-10.8)
[2017-03-06 13:21] LABS: HEMATOCRIT 35.6 % (37.0-47.0); HEMOGLOBIN 11.2 g/dl (12.5-16.0); MEAN CORPUSCULAR HEMOGLOBIN 31 pg (27.0-31.0)
[2017-03-06 13:53] LABS: ADJUSTED CALCIUM 8.6 mg/dL (8.4-10.2); ALBUMIN 2.5 gm/dL (3.5-5.0); BILIRUBIN,TOTAL 0.5 mg/dL (0.0-1.0); CALCIUM 7.4 mg/dL (8.4-10.2); CREATININE, serum 0.71 mg/dL (0.52-1.25)
== END ==
LOC: COL.RAD 11:32
PROVIDERS: Registered Nurse
DX: K31.89 Other diseases of stomach and duodenum (principal); N04.9 Nephrotic syndrome with unspecified morphologic changes

== ENCOUNTER → 2017-03-14 | Outpatient (CLI) | payer MEDICAID | LOC: COL.LAB 10:01 | DX: E87.6 Hypokalemia (principal); N04.0 Nephrotic syndrome with minor glomerular abnormality ==

== ENCOUNTER 2017-03-27 13:27 | Observation (INO) | payer MEDICAID ==
[~2017-03-27] VITALS: Ht 172.7 cm; Wt 78.2 kg
[2017-03-27 14:07] LABS: BASO # 0.1 (0.0-0.2); BASO % 0.6 % (0.0-2.0); EOS # 0.7 (0.0-0.7); EOS % 8.4 % (0-4.0); GRAN # 4.7 (1.4-6.5); GRAN % 54.5 % (42.2-75.2); HEMATOCRIT 40.4 % (37.0-47.0); HEMOGLOBIN 13.5 g/dl (12.5-16.0); LYMPH # 2.5 (1.2-3.4); LYMPH % 28.6 % (20.0-51.0); MEAN CELL VOLUME 92 fl (80.0-100.0); MEAN CORPUSCULAR HEMOGLOBIN 31 pg (27.0-31.0); MEAN CORPUSCULAR HGB CONC 33 g/dl (33.0-37.0); MEAN PLATELET VOLUME 10.2 fl (7.4-10.4); MONO # 0.7 (0.1-0.6); MONO % 7.7 % (1.7-9.3); PLATELET COUNT 413 K/mm3 (130-400); RED BLOOD COUNT 4.38 M/mm3 (4.10-5.30); WHITE BLOOD COUNT 8.7 K/mm3 (4.8-10.8)
[2017-03-27 14:29] LABS: ALBUMIN 2.2 gm/dL (3.5-5.0); BILIRUBIN,TOTAL 0.4 mg/dL (0.0-1.0); CALCIUM 8.6 mg/dL (8.4-10.2); CREATININE, serum 1.47 mg/dL (0.52-1.25); PHOSPHOROUS 6.4 mg/dL (2.5-4.5); POTASSIUM 3.9 mmol/L (3.4-5.0); TOTAL PROTEIN 5.9 gm/dL (6.4-8.2)
[2017-03-27 15:22] LABS: COLLECTION METHOD CLEAN CATCH
[2017-03-27 15:38] LABS: MUCOUS Present /lpf; PH 5 (5-8); URINE APPEARANCE Cloudy; URINE BACTERIA Rare /hpf; URINE BILIRUBIN Negative (NEGATIVE); URINE BLOOD 2+ (NEGATIVE); URINE COLOR Amber; URINE GLUCOSE Negative (NEGATIVE); URINE KETONE Trace (NEGATIVE); URINE LEUKOCYTE ESTERASE Negative (NEGATIVE); URINE PROTEIN(semi-quant) 3+ (NEGATIVE); URINE RBC 20-50 /hpf; URINE UROBILINOGEN Negative (NEGATIVE); URINE WBC 20-50 /hpf
[2017-03-27 17:47] VITALS: BP 131/64; PULSE 62; TEMP 98.8
[2017-03-27 20:08] VITALS: BP 152/93; PULSE 66; TEMP 98.8
[2017-03-27 22:59] VITALS: BP 133/58; PULSE 87; TEMP 98.3
[2017-03-28 04:45] VITALS: BP 120/77; PULSE 57; TEMP 98.7
[2017-03-28 07:37] VITALS: BP 148/90; PULSE 62; TEMP 98.3
[2017-03-28 07:48] LABS: CREATININE, serum 1.68 mg/dL (0.52-1.25); POTASSIUM 3.9 mmol/L (3.4-5.0)
== END 2017-03-28 10:05 | disposition left against medical advice (07) ==
LOC: COL.ER 13:27 → MEDICAL 16:17
PROVIDERS: Emergency Medicine; Physician Assistant
DX: N39.0 Urinary tract infection, site not specified (principal); N17.9 Acute kidney failure, unspecified; E16.2 Hypoglycemia, unspecified; E86.0 Dehydration; N04.9 Nephrotic syndrome with unspecified morphologic changes; F17.210 Nicotine dependence, cigarettes, uncomplicated; H05.229 Edema of unspecified orbit
CPT/HCPCS: 99223-AI; 99232-AI; 99239; G0378; J0696; J2405; J3010; J7030; J7040; J7512

== ENCOUNTER → 2017-04-18 | Outpatient (CLI) | payer MEDICAID ==
[2017-04-18 12:46] LABS: BASO # 0.1 (0.0-0.2); BASO % 0.8 % (0.0-2.0); EOS # 1.6 (0.0-0.7); EOS % 17.7 % (0-4.0); GRAN # 3.4 (1.4-6.5); GRAN % 37.6 % (42.2-75.2); HEMATOCRIT 39.7 % (37.0-47.0); HEMOGLOBIN 13.1 g/dl (12.5-16.0); LYMPH # 3.5 (1.2-3.4); LYMPH % 38.5 % (20.0-51.0); MEAN CELL VOLUME 92 fl (80.0-100.0); MEAN CORPUSCULAR HEMOGLOBIN 30 pg (27.0-31.0); MEAN CORPUSCULAR HGB CONC 33 g/dl (33.0-37.0); MEAN PLATELET VOLUME 12.3 fl (7.4-10.4); MONO # 0.5 (0.1-0.6); MONO % 5.2 % (1.7-9.3); PLATELET COUNT 262 K/mm3 (130-400); RED BLOOD COUNT 4.32 M/mm3 (4.10-5.30)
[2017-04-18 12:59] LABS: ADJUSTED CALCIUM 10.3 mg/dL (8.4-10.2); ALBUMIN 2.5 gm/dL (3.5-5.0); BILIRUBIN,TOTAL 0.3 mg/dL (0.0-1.0); CALCIUM 9.1 mg/dL (8.4-10.2); CREATININE, serum 2.2 mg/dL (0.52-1.25); POTASSIUM 3.5 mmol/L (3.4-5.0); TOTAL PROTEIN 6.1 gm/dL (6.4-8.2)
[2017-04-19 00:23] LABS: SERUM PROTEIN TOTAL 4.7 g/dL (6.1-7.7)
[2017-04-19 02:26] LABS: RPR (VDRL) Non-reactive (())
== END ==
LOC: COL.LAB 11:22
PROVIDERS: Psychiatry & Neurology Neurology
DX: N04.9 Nephrotic syndrome with unspecified morphologic changes (principal); G62.89 Other specified polyneuropathies; Z91.018 Allergy to other foods

== ENCOUNTER → 2017-05-10 | Outpatient (CLI) | payer MEDICAID ==
[2017-05-10 12:11] LABS: BASO # 0.1 (0.0-0.2); BASO % 0.9 % (0.0-2.0); EOS # 3.4 (0.0-0.7); EOS % 28.2 % (0-4.0); GRAN # 3.8 (1.4-6.5); GRAN % 31.4 % (42.2-75.2); LYMPH # 4.1 (1.2-3.4); LYMPH % 34.6 % (20.0-51.0); MEAN CELL VOLUME 92 fl (80.0-100.0); MEAN CORPUSCULAR HGB CONC 32 g/dl (33.0-37.0); MEAN PLATELET VOLUME 12.2 fl (7.4-10.4); MONO # 0.6 (0.1-0.6); MONO % 4.6 % (1.7-9.3); PLATELET COUNT 210 K/mm3 (130-400)
[2017-05-10 12:12] LABS: HEMATOCRIT 31.2 % (37.0-47.0); MEAN CORPUSCULAR HEMOGLOBIN 29 pg (27.0-31.0)
[2017-05-10 13:31] LABS: URINE PROTEIN:CREAT RATIO 2.59 (0.00-0.14)
[2017-05-10 15:14] LABS: CALCIUM 8.6 mg/dL (8.4-10.2); CREATININE, serum 2.68 mg/dL (0.52-1.25); POTASSIUM 4.4 mmol/L (3.4-5.0)
== END ==
LOC: COL.LAB 11:43
PROVIDERS: Internal Medicine
DX: N04.0 Nephrotic syndrome with minor glomerular abnormality (principal); R60.1 Generalized edema

== ENCOUNTER → 2017-06-08 | Outpatient (CLI) | payer MEDICAID ==
[~2017-06-08] MED LIST changes: +FLEXERIL 1010 MG/TAB PO; +PRINIVIL5 MG PO
[2017-06-08 15:40] LABS: COLLECTION METHOD CLEAN CATCH
[2017-06-08 15:49] LABS: BASO # 0.1 (0.0-0.2); EOS # 1.3 (0.0-0.7); EOS % 12.4 % (0-4.0); GRAN # 4.1 (1.4-6.5); GRAN % 37.6 % (42.2-75.2); LYMPH # 4.8 (1.2-3.4); LYMPH % 44.6 % (20.0-51.0); MEAN CELL VOLUME 90 fl (80.0-100.0); MEAN CORPUSCULAR HGB CONC 33 g/dl (33.0-37.0); MEAN PLATELET VOLUME 11.5 fl (7.4-10.4); MONO # 0.5 (0.1-0.6); MONO % 4.2 % (1.7-9.3); PLATELET COUNT 299 K/mm3 (130-400); REDCELL DISTRIBUTION WIDTH-CV 13.9 % (11.5-14.5)
[2017-06-08 15:53] LABS: HYALINE CAST >12 /lpf; MUCOUS Present /lpf; PH 5 (5-8); SQUAMOUS EPITHELIAL 0-2 /hpf; URINE APPEARANCE Hazy; URINE BACTERIA Rare /hpf; URINE BILIRUBIN Negative (NEGATIVE); URINE BLOOD 2+ (NEGATIVE); URINE COLOR Yellow; URINE GLUCOSE Negative (NEGATIVE); URINE KETONE Negative (NEGATIVE); URINE LEUKOCYTE ESTERASE Negative (NEGATIVE); URINE NITRATE Negative (NEGATIVE); URINE PROTEIN(semi-quant) 3+ (NEGATIVE); URINE UROBILINOGEN Negative (NEGATIVE)
[2017-06-08 15:53] LABS: HEMOGLOBIN 9.2 g/dl (12.5-16.0); MEAN CORPUSCULAR HEMOGLOBIN 30 pg (27.0-31.0)
[2017-06-08 15:56] LABS: ALBUMIN 2.2 gm/dL (3.5-5.0); BILIRUBIN,TOTAL 0.1 mg/dL (0.0-1.0); CALCIUM 8.7 mg/dL (8.4-10.2); CREATININE, serum 1.67 mg/dL (0.52-1.25); POTASSIUM 3.8 mmol/L (3.4-5.0); TOTAL PROTEIN 5.7 gm/dL (6.4-8.2)
== END ==
LOC: COL.LAB 14:52
PROVIDERS: Registered Nurse
DX: N04.9 Nephrotic syndrome with unspecified morphologic changes (principal)

== ENCOUNTER 2017-06-10 14:32 | Emergency (ER) | payer MEDICAID ==
[~2017-06-10] VITALS: Ht 172.7 cm; Wt 70.5 kg
[~2017-06-10 14:32] MED LIST changes: -FLEXERIL 1010 MG/TAB PO; -PRINIVIL5 MG PO
[2017-06-10 14:37] VITALS: BP 138/83; TEMP 98.4
[2017-06-10] MEDS ORDERED: PRINIVIL5 MG PO (14:43)
[2017-06-10 16:09] LABS: BASO # 0.1 (0.0-0.2); BASO % 0.7 % (0.0-2.0); EOS # 1.3 (0.0-0.7); EOS % 12.2 % (0-4.0); GRAN # 5.1 (1.4-6.5); GRAN % 49.8 % (42.2-75.2); LYMPH # 3.3 (1.2-3.4); LYMPH % 32.2 % (20.0-51.0); MEAN CELL VOLUME 89 fl (80.0-100.0); MEAN CORPUSCULAR HGB CONC 33 g/dl (33.0-37.0); MEAN PLATELET VOLUME 11.2 fl (7.4-10.4); MONO # 0.5 (0.1-0.6); MONO % 4.7 % (1.7-9.3); PLATELET COUNT 251 K/mm3 (130-400); RED BLOOD COUNT 3.03 M/mm3 (4.10-5.30); REDCELL DISTRIBUTION WIDTH-CV 13.8 % (11.5-14.5)
[2017-06-10 16:12] LABS: HEMATOCRIT 27.1 % (37.0-47.0); HEMOGLOBIN 8.9 g/dl (12.5-16.0); MEAN CORPUSCULAR HEMOGLOBIN 29 pg (27.0-31.0)
[2017-06-10 16:21] LABS: BILIRUBIN,TOTAL 0.2 mg/dL (0.0-1.0); CALCIUM 7.9 mg/dL (8.4-10.2); CREATININE, serum 1.43 mg/dL (0.52-1.25); POTASSIUM 3.6 mmol/L (3.4-5.0); TOTAL PROTEIN 5.3 gm/dL (6.4-8.2)
[2017-06-10 16:22] LABS: C-REACTIVE PROTEIN 0.5 mg/dL (0.0-0.9)
[2017-06-10] MEDS ORDERED: FLEXERIL 1010 MG/TAB PO (17:07)
[2017-06-10 17:17] VITALS: PULSE 68
== END 2017-06-10 17:18 | disposition home or self-care (01) ==
LOC: COL.ER 14:32
PROVIDERS: Nurse Practitioner
DX: M79.622 Pain in left upper arm (principal); I10 Essential (primary) hypertension; F17.210 Nicotine dependence, cigarettes, uncomplicated; Z87.441 Personal history of nephrotic syndrome

== ENCOUNTER → 2017-06-28 | Outpatient (CLI) | payer MEDICAID ==
[~2017-06-28] MED LIST changes: +BENADRYL50 MG PO; +FLEXERIL 1010 MG/TAB PO; +PRINIVIL5 MG PO
== END ==
LOC: COL.RAD 08:57
DX: R11.10 Vomiting, unspecified (principal); R19.7 Diarrhea, unspecified; R52 Pain, unspecified

== ENCOUNTER → 2017-07-02 | Outpatient (CLI) | payer MEDICAID | LOC: COL.RAD 08:16 | DX: R68.81 Early satiety (principal) | CPT/HCPCS: A9541 ==

== ENCOUNTER 2017-07-03 11:31 | Day surgery (SDC) | payer MEDICAID ==
[~2017-07-03] VITALS: Ht 172.7 cm; Wt 69.8 kg
[2017-07-03] VITALS (7 sets, daily range): BP systolic 122–138; BP diastolic 85–101; PULSE 65–90; TEMP 97.8
[~2017-07-03 11:31] MED LIST changes: -BENADRYL50 MG PO
[2017-07-03] MEDS ORDERED: BENADRYL50 MG PO (12:01)
== END 2017-07-03 15:15 | disposition home or self-care (01) ==
LOC: SDCO 11:31
DX: K29.30 Chronic superficial gastritis without bleeding (principal); K64.0 First degree hemorrhoids; K63.89 Other specified diseases of intestine; Z80.0 Family history of malignant neoplasm of digestive organs; I12.9 Hypertensive chronic kidney disease with stage 1 through stage 4 chronic kidney disease, or unspecified chronic kidney disease; N18.9 Chronic kidney disease, unspecified; F17.210 Nicotine dependence, cigarettes, uncomplicated; Z88.0 Allergy status to penicillin; Z88.8 Allergy status to other drugs, medicaments and biological substances
CPT/HCPCS: OP; J2704; J7030

== ENCOUNTER → 2017-08-09 | Outpatient (CLI) | payer MEDICAID ==
[~2017-08-09] MED LIST changes: +BENADRYL50 MG PO
== END ==
LOC: COL.VAS 10:24
DX: R91.8 Other nonspecific abnormal finding of lung field (principal)

== ENCOUNTER 2017-08-28 16:27 | Emergency (ER) | payer MEDICAID ==
[~2017-08-28] VITALS: Ht 172.7 cm; Wt 65.9 kg
[2017-08-28 16:29] VITALS: TEMP 98.3
[2017-08-28 17:31] LABS: BASO # 0.1 (0.0-0.2); BASO % 0.8 % (0.0-2.0); EOS # 1.6 (0.0-0.7); GRAN # 5.5 (1.4-6.5); GRAN % 47.2 % (42.2-75.2); LYMPH # 3.8 (1.2-3.4); LYMPH % 33.1 % (20.0-51.0); MEAN CELL VOLUME 91 fl (80.0-100.0); MEAN CORPUSCULAR HGB CONC 33 g/dl (33.0-37.0); MEAN PLATELET VOLUME 11.2 fl (7.4-10.4); MONO # 0.5 (0.1-0.6); MONO % 4.7 % (1.7-9.3); PLATELET COUNT 223 K/mm3 (130-400); RED BLOOD COUNT 2.49 M/mm3 (4.10-5.30); REDCELL DISTRIBUTION WIDTH-CV 13.2 % (11.5-14.5)
[2017-08-28 17:33] LABS: HEMATOCRIT 22.6 % (37.0-47.0); HEMOGLOBIN 7.5 g/dl (12.5-16.0); MEAN CORPUSCULAR HEMOGLOBIN 30 pg (27.0-31.0)
[2017-08-28 17:41] LABS: POTASSIUM 3.6 mmol/L (3.4-5.0)
[2017-08-28 17:44] LABS: BILIRUBIN,TOTAL 0.2 mg/dL (0.0-1.0); C-REACTIVE PROTEIN 0.7 mg/dL (0.0-0.9); CALCIUM 8.5 mg/dL (8.4-10.2); CREATININE, serum 2.82 mg/dL (0.52-1.25); TOTAL PROTEIN 5.6 gm/dL (6.4-8.2)
[2017-08-28 17:53] LABS: TROPONIN-I 0.016 ng/mL (0.000-0.034)
[2017-08-28 19:19] LABS: COLLECTION METHOD CLEAN CATCH
[2017-08-28 19:34] LABS: MUCOUS Present /lpf; PH 5 (5-8); SQUAMOUS EPITHELIAL 0-2 /hpf; URINE APPEARANCE Hazy; URINE BACTERIA Rare /hpf; URINE BILIRUBIN Negative (NEGATIVE); URINE BLOOD 2+ (NEGATIVE); URINE COLOR Yellow; URINE GLUCOSE 1+ (NEGATIVE); URINE KETONE Trace (NEGATIVE); URINE LEUKOCYTE ESTERASE Negative (NEGATIVE); URINE NITRATE Negative (NEGATIVE); URINE PROTEIN(semi-quant) 3+ (NEGATIVE); URINE RBC 20-50 /hpf; URINE UROBILINOGEN Negative (NEGATIVE)
[2017-08-28 21:00] VITALS: BP 163/100; PULSE 77
== END 2017-08-28 21:05 | disposition short-term general hospital (02) ==
LOC: COL.ER 16:27
PROVIDERS: Emergency Medicine
DX: R60.1 Generalized edema (principal); E16.2 Hypoglycemia, unspecified; N19 Unspecified kidney failure; D64.9 Anemia, unspecified; F17.210 Nicotine dependence, cigarettes, uncomplicated
CPT/HCPCS: J1200; J7030; J7512

== ENCOUNTER → 2017-09-05 | Outpatient (CLI) | payer MEDICAID ==
[2017-09-05 09:17] LABS: CALCIUM 7.1 mg/dL (8.4-10.2); CREATININE, serum 1.78 mg/dL (0.52-1.25); POTASSIUM 3.9 mmol/L (3.4-5.0)
== END ==
LOC: COL.LAB 08:37
PROVIDERS: Internal Medicine Nephrology
DX: N18.2 Chronic kidney disease, stage 2 (mild) (principal)

== ENCOUNTER → 2017-09-14 | Outpatient (CLI) | payer MEDICAID | LOC: COL.LAB 14:35 | DX: Z01.89 Encounter for other specified special examinations (principal) ==

== ENCOUNTER → 2017-09-17 | Outpatient (CLI) | payer MEDICAID ==
[2017-09-17 10:59] LABS: CALCIUM 7.9 mg/dL (8.4-10.2); CREATININE, serum 1.14 mg/dL (0.52-1.25)
== END ==
LOC: COL.LAB 10:01
PROVIDERS: Internal Medicine Nephrology
DX: N17.9 Acute kidney failure, unspecified (principal)

== ENCOUNTER → 2017-09-20 | Outpatient (CLI) | payer MEDICAID ==
[2017-09-20 11:19] LABS: BASO % 0.1 % (0.0-2.0); GRAN # 16.5 (1.4-6.5); GRAN % 79.3 % (42.2-75.2); LYMPH # 3.2 (1.2-3.4); LYMPH % 15.4 % (20.0-51.0); MEAN CELL VOLUME 107 fl (80.0-100.0); MEAN CORPUSCULAR HGB CONC 31 g/dl (33.0-37.0); MEAN PLATELET VOLUME 9.5 fl (7.4-10.4); MONO # 0.9 (0.1-0.6); MONO % 4.1 % (1.7-9.3); PLATELET COUNT 307 K/mm3 (130-400); REDCELL DISTRIBUTION WIDTH-CV 22.5 % (11.5-14.5)
[2017-09-20 11:24] LABS: HEMATOCRIT 34.3 % (37.0-47.0); HEMOGLOBIN 10.5 g/dl (12.5-16.0); MEAN CORPUSCULAR HEMOGLOBIN 33 pg (27.0-31.0)
== END ==
LOC: COL.LAB 10:58
PROVIDERS: Registered Nurse
DX: D72.829 Elevated white blood cell count, unspecified (principal)

== ENCOUNTER → 2017-10-04 | Outpatient (CLI) | payer MEDICAID ==
[2017-10-04 23:02] LABS: URINE MICROALBUMIN 3.6 mg/dL (0.0-1.7)
== END ==
LOC: COL.LAB 10:15
PROVIDERS: Internal Medicine Nephrology
DX: N18.2 Chronic kidney disease, stage 2 (mild) (principal)

== ENCOUNTER 2017-11-01 10:45 | Outpatient (RCR) | payer MEDICAID | END 2017-12-18 16:02 | disposition home or self-care (01) | LOC: WSOT 10:45 | DX: G56.01 Carpal tunnel syndrome, right upper limb (principal) ==

== ENCOUNTER 2017-11-09 13:42 | Outpatient (RCR) | payer MEDICAID | END 2017-12-04 14:51 | disposition home or self-care (01) | LOC: WSPT 13:42 | DX: M25.511 Pain in right shoulder (principal); M25.552 Pain in left hip; R53.1 Weakness ==

== ENCOUNTER → 2017-12-03 | Outpatient (CLI) | payer MEDICAID ==
[2017-12-03 11:39] LABS: ALBUMIN 3.8 gm/dL (3.5-5.0); CALCIUM 9.8 mg/dL (8.4-10.2); CREATININE, serum 1.11 mg/dL (0.52-1.25)
[2017-12-03 11:59] LABS: URINE PROTEIN:CREAT RATIO 0.18 (0.00-0.14)
== END ==
LOC: COL.LAB 09:35
PROVIDERS: Internal Medicine Nephrology
DX: N18.2 Chronic kidney disease, stage 2 (mild) (principal)

== ENCOUNTER → 2017-12-31 | Outpatient (CLI) | payer MEDICAID ==
[2017-12-31 13:36] LABS: ALBUMIN 3.5 gm/dL (3.5-5.0); CALCIUM 9.5 mg/dL (8.4-10.2); CREATININE, serum 0.97 mg/dL (0.52-1.25); POTASSIUM 3.6 mmol/L (3.4-5.0)
[2017-12-31 13:39] LABS: URINE PROTEIN:CREAT RATIO 0.06 (0.00-0.14)
== END ==
LOC: COL.LAB 12:24
PROVIDERS: Internal Medicine Nephrology
DX: N18.2 Chronic kidney disease, stage 2 (mild) (principal)